=== PATIENT | male | born 1970 | race Caucasian/White ===

== ENCOUNTER 2023-06-29 00:12 | Emergency (ER) | payer MEDICAID ==
[~2023-06-29] VITALS: Ht 177.8 cm; Wt 93.2 kg
[2023-06-29 00:20] VITALS: TEMP 98.3
[2023-06-29] MEDS: bacitracin 15gm ointment TP ONE (01:41)
[2023-06-29] MEDS: cyclopentolate 2% ophthalmic sol 5ml RIGHTEYE ONE (02:24)
[2023-06-29] MEDS: proparacaine 0.5% ophthalmic drops 15ml EACHEYE ONE (02:24)
[2023-06-29 02:27] LABS: BASOPHILS % (AUTO) 0.3 % (0-1); EOSINOPHILS % (AUTO) 0.1 % (0-6); HEMATOCRIT 43.8 % (42.0-52.0); HEMOGLOBIN 14.4 g/dl (14.0-17.9); LYMPHOCYTES # (AUTO) 1.6 X10'3 (1.1-4.8); LYMPHOCYTES % (AUTO) 12.3 % (21-51); MEAN CORPUSCULAR HEMOGLOBIN 30.5 PG (27.0-31.0); MEAN CORPUSCULAR HGB CONC 32.8 g/dL (33.0-36.5); MEAN CORPUSCULAR VOLUME 92.9 FL (78-98); MONOCYTES # (AUTO) 0.6 X10'3 (0-0.9); MONOCYTES % (AUTO) 4.9 % (2-12); NEUTROPHILS # (AUTO) 10.7 X10'3 (1.8-7.7); NEUTROPHILS % (AUTO) 82.4 % (42-75); PLATELET COUNT 338 X10'3 (140-440); RED BLOOD COUNT 4.72 X10'6 (4.70-6.10); RED CELL DISTRIBUTION WIDTH 14.1 % (11.5-14.5)
[2023-06-29 02:35] LABS: ALBUMIN 3.6 G/DL (3.4-5.0); ANION GAP 10 (8-16); BLOOD UREA NITROGEN 18 MG/DL (7-18); BUN/CREATININE RATIO 15.3 (10.0-20.0); CALCIUM 8.8 MG/DL (8.5-10.1); CHLORIDE 104 MMOL/L (99-107); CREATININE 1.18 MG/DL (0.60-1.10); GLUCOSE 101 MG/DL (70-104); POTASSIUM 3.9 MMOL/L (3.5-5.1); SODIUM 143 MMOL/L (135-145); TOTAL CARBON DIOXIDE 29.5 MMOL/L (24-32); eCRCL 76 ML/MIN; eGFR 65 ML/MIN
[2023-06-29] MEDS: levoFLOXACIN-Levaquin 750MG/D5 150 ML IV ONE (02:35)
[2023-06-29 02:37] LABS: PROTHROMBIN TIME 10.3 SECONDS (9.0-12.0)
[2023-06-29] MEDS ORDERED: LISI40TA13 PO (02:37)
[2023-06-29] MEDS ORDERED: AMLO2.5T2 PO (02:37)
[2023-06-29] MEDS: acetaminophen 325mg tablet PO ONE ×2 (02:46→09:29)
[2023-06-29] MEDS: ondansetron/PF 4mg/2ml inj IV ONE (03:01)
[2023-06-29] MEDS: vancomycin/NS 1 GM ADD-VANTAGE 250 ML IV ONE (04:05)
[2023-06-29 05:57] LABS: BILIRUBIN,URINE NEGATIVE (Neg); CLARITY,URINE CLEAR (Clear); COLOR,URINE YELLOW (Yellow); GLUCOSE, URINE NEGATIVE (Neg); KETONES,URINE TRACE mg/dl (Neg); LEUKOCYTE ESTERASE ,URINE NEGATIVE (Neg); NITRITES, URINE NEGATIVE (Neg); OCCULT BLOOD,URINE NEGATIVE (Neg); PH,URINE 7.5 (4.8-8.0); PROTEIN,URINE NEGATIVE (Neg); UROBILINOGEN,URINE 0.2 E.U/dL (0.2-1.0)
[2023-06-29 05:59] LABS: UA COLLECTION TYPE CLN CATCH MIDSTREAM
[2023-06-29] MEDS: lisinopril 10 MG tablet PO ONE (09:29)
[2023-06-29] MEDS: amLODIPine 5mg tablet PO ONE (09:30)
[2023-06-29 09:50] VITALS: BP 161/91; PULSE 83; RESP 14; O2SAT 99
== END 2023-06-29 09:54 | disposition short-term general hospital (02) ==
LOC: ER 00:13
DX: S05.31XA Ocular laceration without prolapse or loss of intraocular tissue, right eye, initial encounter (principal); F17.200 Nicotine dependence, unspecified, uncomplicated; Z79.899 Other long term (current) drug therapy; Y08.89XA Assault by other specified means, initial encounter; Y93.89 Activity, other specified; Y92.89 Other specified places as the place of occurrence of the external cause; Y99.8 Other external cause status
CPT/HCPCS: 36415; 70450; 70486; 72125; 80048; 81003; 85025; 85610; 96365; 96366; 96368; 96375; 99291; 99292; J1956; J2405; J3370; J7030; 99285